=== PATIENT | male | born 1975 | race Caucasian/White ===

== ENCOUNTER 2017-02-27 05:13 | Emergency (ER) | payer SELFPAY ==
[~2017-02-27] VITALS: Ht 188 cm; Wt 98.1 kg
[2017-02-27 05:13] VITALS: BP 123/79
[~2017-02-27 05:13] MED LIST: ACET-709 PO; AMOX1TAB64 PO
== END 2017-02-27 06:34 | disposition home or self-care (01) ==
LOC: ED 06:28
DX: S20.212A Contusion of left front wall of thorax, initial encounter (principal); S09.90XA Unspecified injury of head, initial encounter; Y99.0 Civilian activity done for income or pay; L03.116 Cellulitis of left lower limb; Y04.8XXA Assault by other bodily force, initial encounter; Y93.89 Activity, other specified; Y92.89 Other specified places as the place of occurrence of the external cause
CPT/HCPCS: 70450; 71020